=== PATIENT | male | born 1950 | race Caucasian/White ===

== ENCOUNTER → 2019-06-17 | Day surgery (SDC) | payer MEDICARE, BC ==
[~2019-06-17] MED LIST: Lactated Ringers 1,000 ML IV SCH; Propofol 200 MG/20 ML SDV IV ONE
--- NOTE | 2019-06-17 11:09 | OR ---
DATE OF OPERATION: 06/17/2019 PREOPERATIVE DIAGNOSIS: 1. FAMILY HISTORY OF COLON CANCER. 2. BRIGHT RED BLOOD PER RECTUM. POSTOPERATIVE DIAGNOSIS: 1. FAMILY HISTORY OF COLON CANCER. 2. BRIGHT RED BLOOD PER RECTUM. SURGEON: Alcides Menchaca MD PROCEDURE: DIAGNOSTIC COLONOSCOPY. ANESTHESIA: MAC. COMPLICATIONS: None. SPECIMEN: None. FINDINGS: 1. Essentially normal full-length colonoscopy. 2. Internal hemorrhoids. RECOMMENDATIONS: Routine medical followup, colonoscopy every 5 years due to family history of colon cancer in patient's father. INDICATIONS: The patient is approximately due for a colonoscopy due to his family history, been having some constipation issues with occasional bright red blood per rectum. Swapna Dick sent him for diagnostic scope. DESCRIPTION OF PROCEDURE: The patient was prepped and draped, placed in the left lateral decubitus position. A lubricated Olympus colonoscope was inserted and with ease advanced to the cecum. I was able to directly visualize the ileocecal valve and appendiceal orifice. The bowel prep was adequate. There was an area in the sigmoid that was quite filled with stool. I irrigated as best as possible, but smaller lesions certainly might have been missed for about 15 cm. Upon withdrawal throughout the right transverse and descending colon, no abnormalities were seen. The sigmoid area, other than the area that had stool essentially was benign. No obvious polyps, mass, ulceration, or bleeding sites. No vascular abnormalities or signs of colitis. The rectal vault was benign. Retroflexion showed a lot of perianal hemorrhoid disease, otherwise benign. There was a small skin tag present as well. Air was then suctioned from the colon, scope removed without complication. WALDEMAR/FACUNDO /[id number]
[2019-06-17 11:25] VITALS: BP 126/74; PULSE 66
== END ==
LOC: CC.SDS 09:10
PROVIDERS: ATTEND Family Medicine
DX: K62.5 Hemorrhage of anus and rectum (principal); K64.8 Other hemorrhoids; Z80.0 Family history of malignant neoplasm of digestive organs; Z79.899 Other long term (current) drug therapy; Z79.82 Long term (current) use of aspirin
CPT/HCPCS: 45380; J2704; J7120; G0121

== ENCOUNTER 2024-04-22 07:34 | Day surgery (SDC) | payer MEDICARE, BC ==
[2024-04-22] MEDS: Lactated Ringers 1,000 ML IV SCH (07:48)
[2024-04-22] MEDS ORDERED: fentaNYL 50 MCG/ML SDV ONE (08:01)
[2024-04-22] MEDS ORDERED: Ketamine 200 MG/20 ML MDV ONE (08:01)
[2024-04-22] MEDS ORDERED: Propofol 200 MG/20 ML SDV ONE (08:01)
[2024-04-22 09:31] VITALS: BP 133/72; PULSE 60
== END 2024-04-22 09:21 | disposition home or self-care (01) ==
LOC: CC.SDS 07:34
PROVIDERS: ATTEND Family Medicine
DX: Z12.11 Encounter for screening for malignant neoplasm of colon (principal); K64.9 Unspecified hemorrhoids; Z80.0 Family history of malignant neoplasm of digestive organs; I10 Essential (primary) hypertension; E78.5 Hyperlipidemia, unspecified; Z79.899 Other long term (current) drug therapy
CPT/HCPCS: J2704; J3010; J3490; J7120